=== PATIENT | male | born 1945 | race Caucasian/White ===

== ENCOUNTER 2021-02-17 18:40 | Inpatient (IN) | payer MEDICARE ==
[2021-02-17] VITALS (9 sets, daily range): BP systolic 162–211; BP diastolic 83–110
[~2021-02-17] VITALS: Ht 177.8 cm; Wt 104.3 kg
[~2021-02-17 18:40] MED LIST: FLEXERIL PO; IBUPROFEN 800800 M1 PO; MECLIZINE HCL12.5 MG PO; MOTION RELIEF25 MG PO; VENTOLIN HFA 1818 GM INH; ZOLOFT25 MG PO
[2021-02-17 19:02] LABS: HEMATOCRIT 52.9 % (42.0-52.0); HEMOGLOBIN 18.3 gm/dL (14.0-18.0); MCH 34.2 pg (26.0-34.0); MCHC 34.5 g/dL (28.0-37.0); MCV 99.2 fL (80.0-100.0); NUCLEATED RBCS 0 /100WBC; PLATELET COUNT* 257 thou/uL (150-400); RBC 5.33 mil/uL (4.50-6.00); RDW-CV 13.2 % (10.5-14.5); WBC 12.4 thou/uL (4.0-11.0)
[2021-02-17 19:19] LABS: APTT 31.3 Seconds (25.0-31.3); PROTIME 10.9 Seconds (9.20-11.50)
[2021-02-17 19:30] LABS: ALBUMIN 4.1 g/dL (3.4-5.0); MAGNESIUM 1.7 mg/dL (1.8-2.4); TOTAL BILIRUBIN 0.7 mg/dL (<0.1-1.0); TOTAL PROTEIN 8.1 g/dL (6.4-8.2)
[2021-02-17 19:44] LABS: ABSOLUTE MONOCYTES 0.4 thou/uL (0.0-1.2)
[2021-02-17 19:45] LABS: PLATELET ESTIMATE ADEQUATE
[2021-02-17] MEDS ORDERED: CRESTOR20 MG PO (20:05)
[2021-02-17] MEDS ORDERED: OMEPRAZOLE 20 M20 M1 PO (20:05)
[2021-02-17] MEDS ORDERED: ASA81BEC PO (23:37)
[2021-02-18] VITALS (74 sets, daily range): BP systolic 78–169; BP diastolic 35–88
[2021-02-18 00:45] LABS: HEMATOCRIT 48.8 % (42.0-52.0); HEMOGLOBIN 16.8 gm/dL (14.0-18.0); MCH 33.7 pg (26.0-34.0); MCHC 34.4 g/dL (28.0-37.0); MCV 98.1 fL (80.0-100.0); MPV 9.6 fl. (7.2-11.1); RBC 4.98 mil/uL (4.50-6.00); RDW-CV 13.2 % (10.5-14.5); WBC 14.2 thou/uL (4.0-11.0)
[2021-02-18 01:25] LABS: ALBUMIN 3.7 g/dL (3.4-5.0); ALKALINE PHOSPHATASE 108 U/L (46-116); ANION GAP 10 mmol/L (7-16); BUN 8 mg/dL (7-18); CALCIUM 10.7 mg/dL (8.5-10.1); CHLORIDE 99 mmol/L (98-107); CHOLESTEROL 255 mg/dL (<200); CO2 26 mmol/L (21-32); GLUCOSE 140 mg/dL (70-99); HDL CHOLESTEROL 40 mg/dL (>40); LDL CHOLESTEROL 142 mg/dL (<100); POTASSIUM 4.7 mmol/L (3.5-5.1); SERUM ASSESSMENT Clear; SGOT 291 U/L (15-37); SGPT 68 U/L (30-65); SODIUM 135 mmol/L (136-145); TC:HDL 6.4 Ratio (Not establshd); TOTAL BILIRUBIN 0.9 mg/dL (<0.1-1.0); TOTAL PROTEIN 7.1 g/dL (6.4-8.2); TRIGLYCERIDE 365 mg/dL (<150); VLDL 73 mg/dL (<40)
--- NOTE | 2021-02-18 11:51 | CARD ---
[address] [address] CARDIAC CATH REPORT Name: ALENA TAYLOR JR Room: [address] IN [facility]#: [id number] Admission: 02/17/21 Attend Phys: Silvana Lezama Discharge: Date of : 47 Report #: [id number] THIS REPORT FOR: cc: Joshua Ordoñez MD, Matthew W. MD Holkins, John M. MD [facility] ~ APPROVED REPORT Study performed: 02/17/2021 19:07:51 Patient Details Patient Status: ED Room #: The patient is a 75 year-old male Event Personnel Tiago Borden Campground Manager, Wendy Kirkpatrick RN Pipeline TechnicianRobert Brad POT TENDER Monitor, Edd Phoenix POT TENDER Scrub Procedures Performed Art Access - R femoral artery* Left Heart Cath w/or w/o Coronaries [id number] [facility] Place w/wo Plasty Single CIRC [id number] Indication STEMI Risk Factors Obesity, Hypercholesterolemia, Hypertension Procedure Narrative The patient was brought emergently to the Cardiac Catheterization Laboratory and was prepped and draped in a sterile manner. The right femoral was infiltrated with 2% Lidocaine subcutaneous anesthesia. IV conscious sedation was used throughout procedure with appropriate monitoring and was performed in the presence of a registered nurse who was an independent trained observer other than the physician performing the procedure. A [place] 6 FR sheath was inserted into the right femoral artery. Coronary angiography was performed using coronary diagnostic catheters. The right coronary system was accessed and visualized with a JR4 catheter. The left coronary system was accessed and visualized with a JL4 catheter. Left ventriculogram was performed in FREDERICK projection. Pre-demployment femoral angiogram was performed . Closure device was deployed with a 6 Fr Angioseal. The patient tolerated the procedure well [place] [address] CARDIAC CATH REPORT Name: ALENA TAYLOR JR Room: [address] IN [facility]#: [id number] Admission: 02/17/21 Attend Phys: Silvana Lezama Discharge: Date of : 47 Report #: [id number] associated with the procedure. There was no hematoma. Intraoperative Conscious Sedation Sedation start time: 1940 Case end Time: 2034 Fluoro Time: 22.2 minutes Dose: DAP 14498 cGycm2 3069 mGy Contrast Type and Amount: Visipaque 360 ml Diagnostic Cath Left Main 0% narrowing LAD 40% ostial and proximal narrowing Circumflex 100% mid vessel occlusion with prominent intraluminal thrombus and BORIS 0 flow to the distal vessel Right Coronary Dominant vessel with 50% narrowing at the acute margin Left Ventriculography Left Ventriculography was not performed. Hemodynamics The aortic pressure is 219/93 mmHg with a mean of 137 mmHg. PCI Technique Lesion Anticoagulation was achieved with Angiomax. Patient was preloaded with Angiomax IV 16 ml. Percutaneous coronary intervention was performed on the mid circumflex artery segment. The lesion stenosis prior to intervention was 100% with BORIS 0 flow. A JR4 Guide Catheter was used to engage the RIGHT ostium. BALLOON DILATION A Balloon catheter NC Euphora 2.25x 12 was inserted and inflated up to 13.00atm for 11seconds. Additional Inflation: 14.00atm for 7seconds. STENT DEPLOYMENT A drug-eluting stent Henrique RX Stent 2.5X15mm was inserted and inflated up to 12.00atm for 7seconds. Additional Inflation: 14.00atm for 7seconds. Additional Inflation: 16.00atm for 13seconds. POST STENT DEPLOYMENT BALLOON DILATION A Balloon catheter NC Trek RX 3.0 X 12 was inserted and inflated up to 12.00atm for 16seconds. Additional Inflation: 15.00atm for 7seconds. Additional Inflation: 15.00atm [place] 8seconds. [place] [address] CARDIAC CATH REPORT Name: ALENA TAYLOR JR Room: [address] IN [facility]#: [id number] Admission: 02/17/21 Attend Phys: Silvana Lezama Discharge: Date of : 47 Report #: [id number] Final angiography reveals 10 % stenosis with BORIS 3 flow. COMMENTS The PCI was technically complex by virtue of difficult access with complex wiring from the femoral approach as I had to traverse stent grafts in the right common iliac and abdominal aorta. This was accomplished prior to proceeding with angiographic assessment and PCI to the circumflex. Conclusion 1. Acute ST segment elevation inferoposterior myocardial infarction 2. Significant coronary artery disease characterized by the following: A 100% mid circumflex occlusion with local thrombus at the site of BORIS 0 flow to the distal vessel B 40% ostial and proximal LAD narrowing C dominant right coronary artery with 50% narrowing at the acute margin 3. Significant systemic hypertension throughout the study 4. Successful PCI with deployment of drug-eluting stent at the site of 100% mid circumflex occlusion with 10% residual narrowing BORIS-3 flow the distal vessel and no residual thrombus Recommendations Cardiac Risk Reduction Program Aggressive Medical Therapy Medications Administered Aspirin (any) Ticagrelor Diagnostic Cath Approved by: Tiago Borden MD Date/Time: 02/18/2021 11:49:44 <ELECTRONICALLY SIGNED> By: Tiago Borden MD, [facility] 02/18/21 1150 115 1150Tiago Borden MD, FAC /INF
--- NOTE | 2021-02-18 12:42 | 2DMMODE ---
[place] [address] 2 D/M-MODE ECHOCARDIOGRAM Name: ALENA TAYLOR JR Room: [address] IN .R.#: [id number] Admission: 02/17/21 Attend Phys: Renny Velazco Discharge: Date of : 47 Date of Service: 02/18/21 1242 Report #: [id number] THIS REPORT FOR: cc: Joshua Ordoñez MD, Matthew W. MD Holkins, John M. MD [facility] ~ APPROVED REPORT Study performed: 02/18/2021 09:55:50 EXAM: Comprehensive 2D, Doppler, and color-flow Echocardiogram Patient Location: Bedside BSA: 2.21 HR: 74 bpm BP: 112/50 mmHg Other Information Study Quality: Good Indications Chest Pain SD 2D Dimensions IVSd: 13.80 (7-11mm) LVOT Diam: 22.27 (18-24mm) LVDd: 46.70 mm PWd: 11.89 (7-11mm) Ascending Ao: 33.03 (22-36mm) LVDs: 29.81 (25-40mm) Aortic Root: 33.65 mm Volumes Left Atrial Volume (Systole) LA ESV Index: 17.60 mL/m2 Aortic Valve AoV Peak Farhan.: 1.45 m/s AO Peak Gr.: 8.36 mmHg LVOT Max P.79 mmHg AO Mean Gr.: 4.65 mmHg LVOT Mean P.88 mmHg LVOT Max V: 0.97 m/s AO V2 VTI: 27.86 cm LVOT Mean V: 0.63 m/s LESTER (VTI): 3.50 cm2 LVOT V1 VTI: 25.04 [place] [address] 2 D/M-MODE ECHOCARDIOGRAM Name: ALENA TAYLOR JR Room: [address]#: [id number] Admission: 02/17/21 Attend Phys: Renny Velazco Discharge: Date of : 47 Date of Service: 02/18/21 1242 Report #: [id number] E/A Ratio: 0.75 MV Decel. Time: 273.50 ms MV E Max Farhan.: 0.67 m/s MV PHT: 79.31 ms MVA (PHT): 2.77 cm2 TDI E/Lateral E': 13.40 E/Medial E': 9.57 Medial E' Farhan.: 0.07 m/s Lateral E' Farhan.: 0.05 m/s Pulmonary Valve PV Peak Farhan.: 0.85 m/s PV Peak Gr.: 2.87 mmHg Left Ventricle The left ventricle is normal size. There is focal inferolateral hypokinesis. Mild concentric left ventricular hypertrophy. Left ventricular systolic function is normal. The left ventricular ejection fraction is within the normal range. LVEF is 60%. Grade I - abnormal relaxation pattern. Right Ventricle The right ventricle is normal size. The right ventricular systolic function is normal. Atria The left atrium size is normal. The right atrium size is normal. Aortic Valve Mild aortic valve sclerosis. No aortic regurgitation is present. There is no aortic valvular stenosis. Mitral Valve Mild mitral annular calcification. There is no mitral valve regurgitation noted. No evidence of mitral valve stenosis. Tricuspid Valve The tricuspid valve is normal in structure. There is no tricuspid valve regurgitation noted. Pulmonic Valve The pulmonary valve is normal in structure. There is no pulmonic valvular regurgitation[place] [address] 2 D/M-MODE ECHOCARDIOGRAM Name: ALENA TAYLOR JR Room: [address]#: [id number] Admission: 02/17/21 Attend Phys: Renny Velazco Discharge: Date of : 47 Date of Service: 02/18/21 1242 Report #: [id number] The aortic root is normal in size. IVC is normal in size and collapses >50% with inspiration. Pericardium There is no pericardial effusion. <Conclusion> The left ventricle is normal size. Mild concentric left ventricular hypertrophy. Left ventricular systolic function is normal. The left ventricular ejection fraction is within the normal range. LVEF is 60%. Grade I - abnormal relaxation pattern. The right ventricle is normal size. The left atrium size is normal. Mild aortic valve sclerosis. No aortic regurgitation is present. Mild mitral annular calcification. There is no mitral valve regurgitation noted. The tricuspid valve is normal in structure. IVC is normal in size and collapses >50% with inspiration. There is no pericardial effusion. There is focal inferolateral hypokinesis. <ELECTRONICALLY SIGNED> By: Tiago Borden MD, [facility] 02/18/21 124 124 41 Tiago Borden MD, FACC /INF
--- NOTE | 2021-02-18 12:49 | EKG ---
[place] [address] ELECTROCARDIOGRAM REPORT Name: ALENA TAYLOR JR Room: [address] ADM IN M.R.#: [id number] Admission: 02/17/21 Attend Phys: Renny Velazco Discharge: Date of : 47 Date of Service: 02/17/21 1855 Report #: [id number] THIS REPORT FOR: //name// [facility] ED Test Date: 2021-02-17 Test Time: 18:55:51 Pat Name: ALENA TAYLOR Department: Room: [address] Gender: M Cyber Engineer: FARIHA : 1945 Requested By: Tiago Borden Order Number: [id number] Rod MD: Tiago Borden Measurements Intervals [place] Rate: 98 P: 69 [place]: 205 QRS: -54 QRSD: 94 T: 79 QT: 355 QTc: 454 Interpretive Statements Sinus rhythm Inferoposterior infarct, acute Abnormal lateral Q waves Probable RV involvement, suggest recording right precordial leads Compared to ECG 02/17/2021 18:44:36 Q waves now present Myocardial infarct finding still present Electronically Signed On 02-18-2021 12:49:06 CDT by Tiago Borden [email or web address] <ELECTRONICALLY SIGNED> By: Tiago Borden MD, [facility] 02/18/21 1249 54 54 Tiago Borden MD, [facility] /EPI
--- NOTE | 2021-02-18 12:49 | EKG ---
[place] [address] ELECTROCARDIOGRAM REPORT Name: ALENA TAYLOR JR Room: [address] ADM IN M.R.#: [id number] Admission: 02/17/21 Attend Phys: Renny Velazco Discharge: Date of : 47 Date of Service: 02/17/21 1844 Report #: [id number] THIS REPORT FOR: //name// [facility] ED Test Date: 2021-02-17 Test Time: 18:44:36 Pat Name: ALENA TAYLOR Department: Room: [facility] Gender: M Bicycle Courier: FARIHA : 1945 Requested By: Milton Silverman Order Number: [id number] MD: Tiago Borden Measurements Intervals [place] Rate: 99 P: 68 MS: 205 QRS: -61 QRSD: 91 T: 80 QT: 344 QTc: 442 Interpretive Statements Sinus rhythm Probable left atrial enlargement Inferoposterior infarct, acute Probable RV involvement, suggest recording right precordial leads Compared to ECG 01/24/2016 09:27:53 Myocardial infarct finding now present Electronically Signed On 02-18-2021 12:48:43 CDT by Tiago Borden [email or web address] <ELECTRONICALLY SIGNED> By: Tiago Borden MD, [facility] 02/18/21 1248 1844 Tiago Borden MD, [facility] /EPI
--- NOTE | 2021-02-18 12:52 | EKG ---
[place] [address] ELECTROCARDIOGRAM REPORT Name: ALENA TAYLOR JR Room: [address] ADM IN M.R.#: [id number] Admission: 02/17/21 Attend Phys: Renny Velazco Discharge: Date of : 47 Date of Service: 02/17/21 2346 Report #: [id number] THIS REPORT FOR: //name// [facility] Test Date: 2021-02-17 Test Time: 23:46:05 Pat Name: ALENA TAYLOR Department: Room: [facility] Gender: M Injury/Safety Hazard Assessment: JJ05 : 1945 Requested By: Milton Silverman Order Number: [id number] MD: Tiago Borden Measurements Intervals [place] Rate: 72 P: 45 [place]: 162 QRS: -74 QRSD: 94 T: 0 QT: 380 QTc: 416 Interpretive Statements Sinus rhythm Abnormal R-wave progression, early transition Inferior posterior infarct involving Compared to ECG 01/24/2016 09:27:53 Myocardial infarct finding now present Electronically Signed On 02-18-2021 12:52:16 CDT by Tiago Borden [email or web address] <ELECTRONICALLY SIGNED> By: Tiago Borden MD, FAC 02/18/21 1252 2346 2346 Tiago Borden MD, FAC /EPI
--- NOTE | 2021-02-18 12:54 | EKG ---
[place] [address] ELECTROCARDIOGRAM REPORT Name: ALENA TAYLOR JR Room: [address] ADM IN M.R.#: [id number] Admission: 02/17/21 Attend Phys: Renny Velazco Discharge: Date of : 47 Date of Service: 02/18/21621 Report #: [id number] THIS REPORT FOR: //name// [facility] Test Date: 2021-02-18 Test Time: 06:22:02 Pat Name: ALENA TAYLOR Department: Room: [address] Gender: M Baton Twirler: JJ05 : 1945 Requested By: Tiago Borden Order Number: [id number] Rod MD: Tiago Borden Measurements Intervals [place] Rate: 67 P: 43 NM: 159 QRS: -68 QRSD: 85 T: 49 QT: 444 QTc: 469 Interpretive Statements Sinus rhythm Inferoposterior infarct, recent ST depression V1-V3, suggest recording posterior leads Baseline wander in lead(s) V6 Compared to ECG 02/17/2021 23:46:05 ST (T wave) deviation now present Myocardial infarct finding still present Electronically Signed On 02-18-2021 12:54:43 CDT by Tiago Borden [email or web address] <ELECTRONICALLY SIGNED> By: Tiago Borden MD, [facility] 02/18/21 1254 0622 Tiago Borden MD, [facility] /EPI
--- NOTE | 2021-02-18 13:02 | CON ---
[address] [address] CONSULTATION Name: FREDRICKWILMERALENA JR Room: [address] IN .R.#: [id number] Admission: 02/17/21 Attend Phys: Silvana Lezama Discharge: Date of : 47 Report #: [id number] THIS REPORT FOR: cc: Joshua Ordoñez MD, Matthew W. MD Holkins, John M. MD [facility] ~ DOC #: [id number] Tiago Borden MD [facility] DATE OF CONSULTATION: 02/17/2021 CARDIOLOGY CONSULTATION The patient is going to the ICU on 02/17/2021. HISTORY OF PRESENT ILLNESS: The patient is a pleasant 75-year-old male with a history of peripheral arterial disease, hypertension and tobacco habituation. This afternoon, he developed severe central chest pain, which persisted and he ultimately sought assistance in the [facility] Emergency Room. EKG revealed evidence for acute inferoposterior ST-segment elevation myocardial infarction. He had hypertension in the ER and the persistent pain. When I saw him, he was continued to have discomfort and an EKG revealed acute inferoposterior injury. In that context, we transferred him emergently to the label operator. PHYSICAL EXAMINATION: GENERAL: Revealed an acutely distressed, overweight elderly male. VITAL SIGNS: Blood pressure 200/100, pulse rate was 108, respirations were 18 per minute. NECK: Jugular venous pressure was normal. CHEST: Clear. CARDIOVASCULAR: Revealed normal first and second heart sounds with a soft systolic murmur. ABDOMEN: Obese. EXTREMITIES: Mildly edematous with intact femoral, pedal and radial pulses. EKG revealed acute inferoposterior ST-segment elevation myocardial infarction. ASSESSMENT: 1. Acute inferoposterior ST-segment elevation myocardial infarction. 2. Peripheral arterial disease, status post stent grafting of the aorta. 3. Status post carotid endarterectomy. 4. History of cerebrovascular accident. 5. Hypertension. 6. [place] [address] CONSULTATION Name: ALENA TAYLOR JR Room: [address]#: [id number] Admission: 02/17/21 Attend Phys: Silvana Lezama Discharge: Date of : 47 Report #: [id number] RECOMMENDATIONS: Emergent cardiac catheterization was undertaken, which revealed total occlusion of the mid circumflex. There was a 50% narrowing of the right coronary artery at the acute margin and 30% mid LAD narrowing. This was accomplished through the stent graft, which had been placed in the aorta from the femoral approach. I proceeded with acute PCI, deploying one 2.5 x 15 mm Henrique drug-eluting stent in the mid circumflex and post-dilating with a 3.0 x 12 NC Trek, inflated to 12-16 atmospheres with 10% residual narrowing, BORIS 3 flow to the distal vessel. His chest pain remitted and the acute EKG changes also remitted. He was given Angiomax during the case and continued infusion 2 hours post-procedurally. He was also placed on aspirin, Brilinta, beta blockade, CHARISSE inhibition and statin. CRITICAL CARE TIME: Forty minutes from 8:20 p.m. to 9:00 p.m. Tiago Borden MD [facility] <ELECTRONICALLY SIGNED> By: Tiago Borden MD, [facility] 02/18/21 1302 00 Tiago Borden MD, [facility] /nt
[2021-02-19] VITALS (14 sets, daily range): BP systolic 89–145; BP diastolic 37–89
[2021-02-19 03:55] LABS: ALBUMIN 3.5 g/dL (3.4-5.0); CALCIUM 9.5 mg/dL (8.5-10.1); CREATININE 1.2 mg/dL (0.6-1.3); POTASSIUM 4.3 mmol/L (3.5-5.1)
[2021-02-19 04:18] LABS: TROPONIN-I LEVEL 26.78 ng/mL (<0.06)
[2021-02-19 04:41] LABS: HEMOGLOBIN 15.6 gm/dL (14.0-18.0); MCH 33.9 pg (26.0-34.0); MCV 99.7 fL (80.0-100.0); MPV 10.1 fl. (7.2-11.1); RBC 4.61 mil/uL (4.50-6.00); WBC 9.6 thou/uL (4.0-11.0)
[2021-02-20] VITALS (10 sets, daily range): BP systolic 96–136; BP diastolic 46–78
[2021-02-20] MEDS ORDERED: BRILINTA90 MG PO (09:08)
[2021-02-20] MEDS ORDERED: BAYER CHEWABLE81 MG PO (09:08)
[2021-02-20] MEDS ORDERED: LISINOPRIL5 MG PO (09:08)
[2021-02-20] MEDS ORDERED: METOPROLOL TART25 MG PO (09:08)
[2021-02-20] MEDS ORDERED: LEVALBUTER0.63 MG/3 INH (09:08)
[2021-02-20] MEDS ORDERED: NITROGLYCERIN0.4 MG SUBLING (09:08)
== END 2021-02-20 15:54 | disposition home or self-care (01) | DRG 247 ==
LOC: M.ERS 18:40 → M.ICU 19:57 → M.TBA-CV 19:57 → M.ERS 20:09 → M.ICU 20:37
PROVIDERS: Emergency Medicine Emergency Medical Services; Internal Medicine; ADMIT Internal Medicine; ATTEND Internal Medicine
PROC: B215YZZ Fluoroscopy of Left Heart using Other Contrast (ICD-10-PCS; principal; 2021-02-17)
PROC: 027034Z Dilation of Coronary Artery, One Artery with Drug-eluting Intraluminal Device, Percutaneous Approach (ICD-10-PCS; principal; 2021-02-17)
PROC: B41FYZZ Fluoroscopy of Right Lower Extremity Arteries using Other Contrast (ICD-10-PCS; principal; 2021-02-17)
PROC: B211YZZ Fluoroscopy of Multiple Coronary Arteries using Other Contrast (ICD-10-PCS; principal; 2021-02-17)
PROC: 4A023N7 Measurement of Cardiac Sampling and Pressure, Left Heart, Percutaneous Approach (ICD-10-PCS; principal; 2021-02-17)
DX: I21.11 ST elevation (STEMI) myocardial infarction involving right coronary artery (principal); J45.909 Unspecified asthma, uncomplicated; I73.9 Peripheral vascular disease, unspecified; I10 Essential (primary) hypertension; F17.210 Nicotine dependence, cigarettes, uncomplicated; I95.9 Hypotension, unspecified; F43.10 Post-traumatic stress disorder, unspecified; Z95.5 Presence of coronary angioplasty implant and graft; Z88.1 Allergy status to other antibiotic agents; Z88.0 Allergy status to penicillin; Z95.820 Peripheral vascular angioplasty status with implants and grafts; Z86.73 Personal history of transient ischemic attack (TIA), and cerebral infarction without residual deficits; Z82.49 Family history of ischemic heart disease and other diseases of the circulatory system